=== PATIENT | male | born 1960 | race Caucasian/White ===

== ENCOUNTER → 2018-07-22 | Outpatient (CLI) | payer OTHER ==
[~2018-07-22] MED LIST: BACTRIM DS TAB1 EACH PO; CELEBREX 200 M200 MG PO; PERCOCET 10-321 EACH PO
== END ==
LOC: M.RAD 07-21 15:40
DX: N64.4 Mastodynia (principal); R92.8 Other abnormal and inconclusive findings on diagnostic imaging of breast; M19.90 Unspecified osteoarthritis, unspecified site; G89.29 Other chronic pain; E66.9 Obesity, unspecified; E78.00 Pure hypercholesterolemia, unspecified; Z88.8 Allergy status to other drugs, medicaments and biological substances; Z82.61 Family history of arthritis

== ENCOUNTER 2020-07-16 12:01 | Emergency (ER) | payer OTHER ==
[~2020-07-16] VITALS: Ht 200.7 cm; Wt 149.7 kg
[2020-07-16] MEDS ORDERED: OXTELLAR XR300 MG PO (12:08)
[2020-07-16] MEDS ORDERED: OMEPRAZOLE40 MG PO (12:08)
[2020-07-16] MEDS ORDERED: EZETIMIBE10 MG PO (12:08)
[2020-07-16] MEDS ORDERED: ADULT ASPIRIN R81 MG PO (12:09)
[2020-07-16] MEDS ORDERED: DULOXETINE HCL30 MG PO (12:09)
[2020-07-16] MEDS ORDERED: MULTIPLE VITAM1 EAC2 PO (12:09)
[2020-07-16] MEDS ORDERED: DAILY FIBER0.52 GM PO (12:09)
[2020-07-16 12:28] LABS: ABSOLUTE BASOPHILS 0.1 thou/uL (0.0-0.2); ABSOLUTE EOSINOPHILS 0.1 thou/uL (0.0-0.7); ABSOLUTE LYMPHOCYTES 1.9 thou/uL (0.8-5.3); ABSOLUTE NEUTROPHILS 4.9 thou/uL (1.6-8.1); BASOPHILS 0.6 %; EOSINOPHILS 0.8 %; HEMOGLOBIN 14.6 gm/dL (14.0-18.0); LYMPHOCYTES 23.5 %; MCH 31.7 pg (26.0-34.0); MCHC 33.9 g/dL (28.0-37.0); MCV 93.5 fL (80.0-100.0); MONOCYTES 13.2 %; MPV 7.9 fl. (7.2-11.1); NUCLEATED RBCS 0 /100WBC; PLATELET COUNT* 282 thou/uL (150-400); POLYS 61.9 %; RDW-CV 13.1 % (10.5-14.5)
[2020-07-16 12:41] LABS: CALCIUM 8.5 mg/dL (8.5-10.1); CREATININE 0.7 mg/dL (0.6-1.3); POTASSIUM 4.1 mmol/L (3.5-5.1)
[2020-07-16 12:43] LABS: APTT 27.1 Seconds (25.0-31.3); PROTIME 10.2 Seconds (9.20-11.50)
[2020-07-16 12:58] LABS: ALBUMIN 3.3 g/dL (3.4-5.0); MAGNESIUM 2.1 mg/dL (1.8-2.4); TOTAL BILIRUBIN 0.2 mg/dL (<0.1-1.0); TOTAL PROTEIN 7.4 g/dL (6.4-8.2)
[2020-07-16] MEDS ORDERED: FLEXERIL PO (14:48)
[2020-07-16 15:15] VITALS: BP 125/60
--- NOTE | 2020-07-18 09:37 | EKG ---
[place] [address] ELECTROCARDIOGRAM REPORT Name: CHERYL PEDRAZA Room: [facility]#: [id number] Admission: 07/16/20 Attend Phys: Discharge: 07/16/20 Date of : 58 Date of Service: 07/16/20 1205 Report #: [id number] THIS REPORT FOR: //name// 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[facility] : 1960 Requested By: Blake Gardner Order Number: [id number] MD: Cecil Kelley Measurements Intervals [place] Rate: 61 P: 37 IA: 177 QRS: -75 QRSD: 123 T: 39 QT: 443 QTc: 447 Interpretive Statements Sinus rhythm Nonspecific IVCD with LAD Baseline wander in lead(s) II,III,aVF No previous ECG available for comparison Electronically Signed On 07-18-2020 9:37:43 CDT by Cecil Kelley [email or web address] <ELECTRONICALLY SIGNED> By: Cecil Kelley MD, FAC 07/18/20 0937 1205 1205 Cecil Kelley MD, [facility] /EPI
--- NOTE | 2020-07-18 09:38 | EKG ---
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1960 Requested By: Blake Gardner Order Number: [id number] MD: Cecil Kelley Measurements Intervals [place] Rate: 55 P: 25 NM: 179 QRS: -70 QRSD: 126 T: 2 QT: 465 QTc: 445 Interpretive Statements Sinus bradycardia Nonspecific IVCD with LAD Borderline T abnormalities, anterior leads Compared to ECG 07/16/2020 12:05:29 T-wave abnormality now present Electronically Signed On 07-18-2020 9:38:45 CDT by Cecil Kelley [email or web address] <ELECTRONICALLY SIGNED> By: Cecil Kelley MD, FAC 07/18/20 0938 1452 1452 Cecil Kelley MD, [facility] /EPI
== END 2020-07-16 15:15 | disposition home or self-care (01) ==
LOC: M.ERS 12:01
PROVIDERS: Emergency Medicine Emergency Medical Services
DX: R07.89 Other chest pain (principal); Z88.1 Allergy status to other antibiotic agents; Z90.49 Acquired absence of other specified parts of digestive tract